=== PATIENT | male | born 1995 | race African-American/Black ===

== ENCOUNTER 2017-07-19 15:03 | Inpatient (IN) ==
[2017-07-19] MEDS ORDERED: ONDANSETRON 4 MG/2 ML VIAL ONE ×2 (15:12→21:00)
[2017-07-19] MEDS ORDERED: HYDROmorphone 2 MG/1 ML VIAL ONE ×3 (15:12→21:17)
[2017-07-19] MEDS ORDERED: SODIUM CHLORIDE 0.9% 1,000 ML IV STA (15:18)
[2017-07-19] MEDS ORDERED: DIPH/TET/ACEL PERT BOOSTER VACCINE 0.5 ML VIAL IM ONE ×2 (15:18→15:35)
[2017-07-19] MEDS ORDERED: HYDROmorphone 2 MG/1 ML VIAL IV STA ×3 (15:18→18:44)
[2017-07-19] MEDS ORDERED: ONDANSETRON 4 MG/2 ML VIAL IV STA (15:19)
--- NOTE | 2017-07-19 15:34 | Emergency Department Note ---
Lamar Hanley Rolonda, am scribing for, and in the presence of, Bridger Lyman MD 15: 17. Esmer Hanley James D, MD, personally performed the services described in this documentation, ascribed by Jennifer Newton in my presence, and it is both accurate and complete 529 . Arrival - Arrival Mode of Arrival: Ambulatory Limitations: No Limitations Source: Patient, Old Records Reviewed, RN Notes Reviewed - History of Present Illness Onset (ago): minute(s) Consistency: constant Severity: severe Severity scale (1-10): 9 <Bridger Lyman - Last Filed: 07/19/17 15:28> <Blake Dillon - Last Filed: 07/19/17 16:36> - Arrival Stated Complaint: CUT ARM - History of Present Illness HPI Narrative: Pt is a 21 y/o male who presents to the ED for further evaluation of laceration to the right arm with an onset of minutes ago. He stated that he was picking up some glass at work when it broke, slipping, cutting his arm. Pt stated that he does not know if his tetanus shot is UTD. Pt states that "the feeling is going out in his arm". No other complaint/pain in ED. (Jennifer Newton) Pt is a 21 y/o male who presents to the ED for further evaluation of laceration to the right arm with an onset of minutes ago. He stated that he was picking up some glass at work when it broke, slipping, cutting his arm. Pt stated that he does not know if his tetanus shot is UTD. Pt states that "the feeling is going out in his arm". No other complaint/pain in ED. (Bridger Lyman) Allergies/Adverse Reactions: Allergies Allergy/AdvReac Type Severity Reaction Status Date / Time No Known Allergies Allergy Verified 07/19/17 15:13 Review of System - Review of System 12 point system: reviewed and no additional remarkable complaints except as stated - Review of System Constitutional: Absent: fever Eyes: Absent: discharge Head/Ears/Nose/Throat: Absent: earache Respiratory: Absent: cough Cardiovascular: Absent: chest pain Gastrointestinal: Absent: abdominal pain Genitourinary male: Absent: dysuria Musculoskeletal: Present: arm pain (cut right arm). Absent: back pain Skin: Absent: rash Neurological: Absent: headache Psychiatric: Absent: anxiety Endocrine: Absent: cold intolerance Hematological/Lymphatic: Absent: easy bleeding Allergic/Immunologic: Absent: facial swelling <Bridger Lyman - Last Filed: 07/19/17 15:28> Exam <Bridger Lyman - Last Filed: 07/19/17 15:28> - Eye Eye exam: Present: PERRL - Chest Chest inspection: Present: normal inspection - Respiratory Respiratory exam: Present: normal lung sounds bilaterally - Cardiovascular Cardiovascular exam: Present: regular rate - Abdominal Exam Abdominal exam: Present: soft <Blake Dillon - Last Filed: 07/19/17 16:36> Vital Signs: Vital Signs Temperature 98.2 F 07/19/17 15:15 Pulse Rate 102 H 07/19/17 15:15 Respiratory Rate 20 07/19/17 15:15 Blood Pressure 131/63 07/19/17 15:15 O2 Sat by Pulse Oximetry 98 07/19/17 15:06 GENERAL: This is a well-nourished well-developed black male in no apparent distress. VITAL SIGNS: Reviewed SKIN: Diaphoretic. No rash. EXTREMITIES: Large laceration of the midportion of the forearm flexor surface which extends into the muscle and may involve tendon. Patient has normal ulnar , radial nerve motor and sensory. Patient has normal median nerve motor function. Capillary refill is less than 2 seconds. NEUROLOGIC: Awake alert and oriented 4. Cranial nerves II through XII are intact. Motor is 5 over 5 in all extremities bilaterally. (Bridger Lyman) Course - Consultations Time: 15:34 <Bridger Lyman - Last Filed: 07/19/17 15:28> <Blake Dillon - Last Filed: 07/19/17 16:36> Course Narrative: gen surgery going to take to or with ortho (Blake Dillon) - Consultations Consultation #1: Discussed with Dr. campbell (Bridger Lyman) Results - Diagnostic Findings Procedure: X-ray: image reviewed by me (no fx) <Blake Dillon - Last Filed: 07/19/17 16:36> Disposition Case discussed with: patient <Bridger Lyman - Last Filed: 07/19/17 15:28> Case discussed with: patient <Blake Dillon - Last Filed: 07/19/17 16:36> Clinical Impression: Laceration of right forearm Disposition: Still a Patient Condition: Stable
[2017-07-19] MEDS ORDERED: ceFAZolin 1,000 MG VIAL ONE (15:35)
[2017-07-19] MEDS ORDERED: LACTATED RINGERS 1,000 ML IV ONE (15:39)
--- NOTE | 2017-07-19 16:00 | XRay Report ---
XR forearm RT Indication: Laceration. Right forearm 2 views: Laceration of the soft tissues is present. No radiopaque debris identified. No underlying fracture or dislocation. Impression: Lacerated right forearm. PROCEDURE INTERPRETED AT [facility] DEPARTMENT OF RADIOLOGY Final Report Signed by: Owen Diamond M.D.
[2017-07-19] MEDS ORDERED: CLINDAMYCIN INJ 900 MG in PREMIX 1 EACH IV ONE (16:23)
--- NOTE | 2017-07-19 16:30 | General Surg History&Physical ---
Assessment and Plan (1) Laceration of right forearm Status: Acute Assessment and plan: There is significant disruption in the right forearm muscle on the volar aspect of the arm. There is significant disruption of the muscle, however, the patient has full function of his hand and there is no neurovascular deficit. There is too much bleeding to evaluate the extent of injury and the wound and this will need to be done in the operating room with washout and closure. Because of the amount of muscle disruption I have talked with Dr. Lukas Bernard and he agreed to see the patient and assist with any issues that arise as far as repair of significant injuries to vital structures in the forearm, however this appears to be an injury that did not cause any damage to any tendons or nerves based on his exam in hand on that side. He will be taken to the operating room shortly and currently bleeding is controlled with a tight wrap dressing. I discussed the risks, benefits, and alternatives of the operation with the patient, and the expected outcomes have been reviewed. Patient would like to proceed with the operation. Current Visit: Yes History of Present Illness Chief complaint: Right forearm laceration History of present illness: Mr. Arceo is a 21 year old male with no significant past medical history who presents to the ER after his form was cut by a piece of glass at work. He is right-hand dominant. He is a smoker. He had bleeding controlled with direct pressure and a tight wrap. Allergies Allergy/AdvReac Type Severity Reaction Status Date / Time No Known Allergies Allergy Verified 07/19/17 15:13 Medical,Surgical,& Family Hx - Social History Smoking Status: Smoker, status unknown Frequency of Alcohol Use: Occasionally Type of Drug Use: Marijuana Exam - Constitutional Vitals: Period Temp Pulse Resp BP Sys/Pablo Pulse Ox Last 24 Hr 98.2 F-98.2 F 102-102 20-20 131-131/63-63 98 General appearance: no acute distress, over weight - Head Head exam: Present: normal inspection, normocephalic - Eye Eye exam: Present: EOMI. Absent: laceration to eyelids Pupils: Present: HOMERO - ENT ENT exam: Present: normal exam Mouth exam: Present: normal external inspection - Neck Neck exam: Present: normal inspection, trachea midline - Respiratory Respiratory exam: Present: clear to auscultation bilaterally. Absent: accessory muscle use, chest wall tenderness - Cardiovascular Cardiovascular exam: Present: RRR. Absent: systolic murmur, tachycardia - GI/Abdominal GI/Abdominal exam: Present: soft. Absent: tenderness, rebound - Extremities Exam Extremities exam: Present: other (There is a significant laceration over the right forearm that measures about 8 cm. It appears to go through the muscle in the right arm and there is active arterial and venous bleeding when the dressing is taken down. It is difficult to fully evaluate the extent of the injury in the wound bed due to the bleeding. The patient has no neurologic or vascular deficits in his right hand and is completely neurovascularly intact on exam.) - Back Exam Back exam: Present: normal inspection - Neurological Exam Neurological exam: Present: alert, oriented X3 Speech: Present: normal - Skin Skin exam: Present: normal color, warm - Constitutional Constitutional: Present: as per HPI - EENT Nose, mouth and throat: Present: as per HPI - Cardiovascular Cardiovascular: Present: as per HPI - Respiratory Respiratory: Present: as per HPI - Gastrointestinal Gastrointestinal: Present: as per HPI - Genitourinary Genitourinary: Present: as per HPI - Musculoskeletal Musculoskeletal: Present: as per HPI - Neurological Neurological: Present: as per HPI - Endocrine Endocrine: Present: as per HPI Hematologic/Lymphatic: Present: as per HPI Quality Measures - VTE Contraindication to Pharmacological VTE Prophylaxis: Active Bleeding Results - Diagnostic Findings Procedure: X-ray: report reviewed by me, image reviewed by me (Right forearm x- ray reviewed)
[2017-07-19] MEDS ORDERED: LACTATED RINGERS 1,000 ML IV SCH (17:00)
--- NOTE | 2017-07-19 17:55 | Orthopedic Consult Note ---
History of Present Illness Chief complaint: Laceration right volar forearm History of present illness: Mr. Arceo is a 21 year old male seen in consultation emergency room for Dr. Trinh evidently lacerated his right forearm with a glass earlier today significant amount of bleeding possible radial artery laceration the laceration is in the mid proximal forearm involving mostly muscle belly I was asked to evaluate regarding possibility of any nervous or tendon injury injury. The dressing was not taken down however intensive hand examination was carried out which resulted in confirmation of intact radial median and ulnar nerve function. Also FDS FDP to all the lesser digits as well as FPL to the thumb are intact I can also palpate flexor carpal radialis and ulnaris. X-rays: Confirm no bony injury Impression: laceration left volar forearm Plan: I cannot identify any tenderness or neural injury. If the radial artery is lacerated he is getting good circulation and flow through the ulnar side his hand is warm and well perfused. I believe this is principally a muscle belly injury and will defer to Dr. Trinh for washout and laceration I recommended a splint be applied postoperatively, splinting the wrist flexors and digital flexors. I would do this until sutures removed in a week or so. Thank you for the consultation Allergies Allergy/AdvReac Type Severity Reaction Status Date / Time No Known Allergies Allergy Verified 07/19/17 15:13 Medical,Surgical,& Family Hx - Social History Smoking Status: Smoker, status unknown Frequency of Alcohol Use: Occasionally Type of Drug Use: Marijuana Exam - Constitutional Vitals: Period Temp Pulse Resp BP Sys/Pablo Pulse Ox Last 24 Hr 98.2 F-98.2 F 102-102 20-20 131-131/63-63 98
--- NOTE | 2017-07-19 20:56 | Operative Note ---
Date of procedure: 07/19/17 Pre-op diagnosis: Right forearm laceration Post-op diagnosis: same Procedure: Preoperative diagnosis Right forearm laceration Postoperative diagnosis 1. Right forearm laceration 2. Transection of radial artery 3. Transection of superficial branch of the radial nerve 4. Transection of flexor carpi radialis 5. Transection of pollicis longus 6. Partial transection of flexor digitorum superficialis 7. Transection of brachioradialis Procedures performed 1. Complex repair right forearm laceration 2. Ligation of transected radial artery 3. Reapproximation of superficial branch of radial nerve 4. Repair of flexor carpi radialis 5. Repair of pollicis longus 6. Repair of flexor digitorum superficialis 7. Repair of brachioradialis 8. Washout of wound Findings Transection of the above-mentioned muscles and neurovascular structures. No motor nerves were injured. There were no tendons injured. The muscles were reapproximated as was the superficial branch of the radial nerve. The radial artery was ligated and there was a palpable pulse still in the ulnar artery with intact palmar arch and a Doppler signal in the radial artery due to collateral flow. The arm was splinted after the repair. Complications None apparent Specimen None Anesthesia General LMA Blood loss 25 mL Indications Complex laceration right forearm with active arterial hemorrhage. The risks, benefits, and alternatives of the operation were discussed with the patient, and the expected outcomes were reviewed. Patient was seen in consultation with orthopedic surgery and tendon and motor nerve injuries were ruled out in the emergency room. Description of procedure The patient was taken to the operating room and transferred to the operating table in the supine position. Pressure points were padded and SCDs placed the bilateral lower extremities. General anesthesia was administered. The right arm was prepped with Betadine after a tourniquet was placed. The tourniquet was never inflated. Once the arm was prepped was draped sterilely. Preoperative antibiotics were administered, and a timeout was performed. The wound was explored. The radial artery had spasmed and clotted but it was transected as was the flexor carpi radialis, pollicis longus, flexor digitorum superficialis was partially transected, and the brachioradialis was also transected. No motor nerves were injured. The radial artery was tied off proximally and distally with 3-0 silk sutures. The superficial branch of the radial nerve was reapproximated with closure of the muscles. The muscles were closed with 3-0 Vicryl sutures. The fascial sheath of the muscles was used to assist with closure of the muscles themselves. The wound was washed out. Each muscle was closed individually and reapproximated to itself. This included the flexor carpi radialis, pollicis longus, flexor digitorum superficialis, and brachioradialis muscles. The skin was then closed with running 4-0 Monocryl subcuticular sutures and dressed with antibiotic ointment and Xeroform gauze. The splint was then applied placing the wrist in some flexion as well as the MCP joints. The patient was awakened from anesthesia and transferred to recovery. Postoperative plan Wound care and splinting occupational therapy Anesthesia: ABIGAIL Surgeon / Physician: Jim Trinh Estimated blood loss: minimal Specimens: none sent Condition: stable Disposition: PACU Discharge Plan - Discharge Data Disposition: Still a Patient - Follow Up or Referral - Forms/Instructions
--- NOTE | 2017-07-19 20:57 | Anesthesia Post-Op ---
Anesthesia Post OP - Post Ansesthetic Evaluation Patient seen in post op: Yes Resp: within normal limits CV: within normal limits Mental: within normal limits Temp: within normal limits [id number]: within normal limits Nausea and Vomiting: within normal limits Pain: within normal limits
[2017-07-19] MEDS ORDERED: SEVOFLURANE 1 UNIT/15 MINUTE INH ONE (21:00)
[2017-07-19] MEDS ORDERED: fentaNYL 100 MCG/2 ML VIAL ONE (21:00)
[2017-07-19] MEDS ORDERED: MIDAZOLAM 2 MG/2 ML VIAL ONE (21:00)
[2017-07-19] MEDS ORDERED: PROPOFOL 200 MG/20 ML VIAL IV ONE (21:00)
[2017-07-19] MEDS ORDERED: KETOROLAC 30 MG/1 ML VIAL ONE (21:00)
[2017-07-19] MEDS ORDERED: ROCURONIUM 100 MG/10 ML VIAL IV ONE (21:01)
[2017-07-19] MEDS ORDERED: GLYCOPYRROLATE 0.4 MG/2 ML VIAL ONE (21:01)
[2017-07-19] MEDS ORDERED: NEOSTIGMINE 10 MG/10 ML VIAL ONE (21:01)
[2017-07-19] MEDS: HYDROmorphone 2 MG/1 ML VIAL IV PRN ×4 (21:15→21:30)
[2017-07-19] MEDS ORDERED: ONDANSETRON 4 MG/2 ML VIAL IV PRN (21:57)
[2017-07-19] MEDS ORDERED: HYDROmorphone 2 MG/1 ML VIAL IV PRN (21:57)
[2017-07-19] MEDS: KETOROLAC 30 MG/1 ML VIAL IV SCH (22:54)
[2017-07-19] MEDS: LACTATED RINGERS 1,000 ML IV SCH (23:11)
[2017-07-20] MEDS: KETOROLAC 30 MG/1 ML VIAL IV SCH ×2 (04:06→09:48)
[2017-07-20] MEDS: LACTATED RINGERS 1,000 ML IV SCH (07:06)
--- NOTE | 2017-07-20 10:29 | Discharge Summary ---
Hospital Course - Hospital Course Hospital Course: The patient is a 21-year-old male who underwent complicated laceration to his right forearm while working which required surgical intervention. See procedures as below. Radial, median and ulnar nerve function were assessed to be intact by the orthopedic physician. The injuries were determined to be primary muscle belly without noted nerve or tendon involvement with recognitions for splinting. Patient underwent the Blose procedures without complication with splint applied per recommendations of the orthopedic surgeon. He was instructed to keep the splint in place and did not remove or get wet. It was reviewed with the patient that this is to decrease his risk of complication. He is aware he may lose some range of motion and her strength in this extremity and his compliance is essential to regain maximum function. Again the patient is able to articulate the postoperative instructions and potential complications. He was discharged home in good condition with splint and appropriate analgesics. He is to follow-up with Dr. Trinh in 1 week for which an appointment was provided. He will begin occupational therapy per the instruction of Dr. Trinh postoperatively. Diagnosis - Discharge Diagnosis (1) Radial artery injury Status: Acute (2) Radial nerve injury Status: Acute (3) Laceration of flexor tendon of right forearm Status: Acute Specialty Discharge - Follow Up or Referrals Follow up with: Jim Trinh MD [Physician] - 07/28/17 2:30 pm Discharge Plan - Discharge Data Disposition: Disch To Home/Self Care Condition at Discharge: Stable Discharge Diet: advance to your usual diet Activity: no lifting, other (Keep splint in place. Splint to remain clean and dry. Avoid perspiration. ) Hygiene: other (Keep splint clean and dry. ) Weight Bearing at Discharge: other (NWB to RUE) Driving: not until seen by doctor Wound / Dressing Care Instructions: Incisions to remain covered by splint. - Discharge Medications New HYDROcodone/ACETAMIN 7.5-325 [[place] 7.5-325] 1 tablet PO Q4H PRN #30 tablet PRN Reason: Pain Moderate To Severe (4-10) - Follow Up or Referral Follow Up: Jim Trinh MD [Physician] - 07/28/17 2:30 pm - Forms/Instructions Instructions: Laceration (DC), Splint Care (DC) Exam - Constitutional Vitals: Period Temp Pulse Resp BP Sys/Pablo Pulse Ox Last 24 Hr 97.2 F-98.2 F 60-102 14-20 120-155/63-94 94-100 General appearance: no acute distress - Head Head exam: Present: normal inspection - Respiratory Respiratory exam: Present: clear to auscultation bilaterally - GI/Abdominal GI/Abdominal exam: Present: normal bowel sounds. Absent: distended, tenderness - Extremities Exam Extremities exam: Present: other (RUE in volar forearm splint. Digits warm with BCR. Radial, median, and ulnar motor and sensory function intact. ) Discharge Results Procedures and tests throughout hospitalization: 1. Complex repair right forearm laceration 2. Ligation of transected radial artery 3. Reapproximation of superficial branch of radial nerve 4. Repair of flexor carpi radialis 5. Repair of pollicis longus 6. Repair of flexor digitorum superficialis 7. Repair of brachioradialis 8. Washout of wound - Imaging and Cardiology Procedure: X-ray: image reviewed by me, report reviewed by me (forearm xr) DS: Provider Date of admission: 07/19/17 20:45 Primary care physician: . No PCP Attending physician on admission: Jim Trinh MD Consults: Orthopedics Dr. Bridger Gaytan Discharging clinician: Marilou Tafoya PA-C
--- NOTE | 2017-07-20 10:36 | Event Note ---
General Surgery Progress Note Chief complaint This patient is a 21-year-old man admitted overnight with a complex laceration of his right forearm that was treated with repair of the laceration and ligation of his radial artery on 07/19/2017 Interval history No events overnight. Patient is having some pain in his right pointer finger but his pain is much better than it was yesterday. He is wearing a splint and tolerating a diet. Physical exam Afebrile, normal vital signs Right hand is pink and well perfused Motor function is normal in the hand Labs None new Imaging None new Assessment and plan Discharge home today Follow-up in clinic in 1 week
[2017-07-20 11:09] VITALS: BP 148/86
[2017-07-20] MEDS ORDERED: ENOXAPARIN 40 MG/0.4 ML SYRINGE SUBCUT SCH (18:00)
== END 2017-07-20 12:34 | disposition home or self-care (01) | DRG 908 ==
LOC: N.ED 15:03 → N.3E 19:21 → N.EDINP 20:45 → N.3E 21:15
PROVIDERS: ADMIT Surgery; ATTEND Surgery